=== PATIENT | female | born 1995 | race African-American/Black ===

== ENCOUNTER 2018-12-28 18:51 | Observation (INO) | payer SELFPAY ==
[~2018-12-28] VITALS: Ht 165.1 cm; Wt 97.7 kg
[2018-12-28 19:15] VITALS: BP 140/87
[2018-12-28 20:09] LABS: MICROSCOPIC INDICATED
[2018-12-28 20:18] LABS: AMPHETAMINE SCREEN, URINE Negative (Negative); BARBITURATE SCREEN, URINE Negative (Negative); BENZODIAZEPINE SCREEN, URINE Negative (Negative); CANNABINOID SCREEN, URINE Negative (Negative); COCAINE SCREEN, URINE Negative (Negative); METHADONE SCREEN, URINE Negative (Negative); OPIATE SCREEN, URINE Negative (Negative)
[2018-12-28 20:51] LABS: BASOPHILS # (AUTO) 0.04 x10^3/uL (0-0.1); BASOPHILS % (AUTO) 1 % (0-1); EOSINOPHILS # (AUTO) 0.07 x10^3/uL (0-0.4); EOSINOPHILS % (AUTO) 1 % (1-7); LYMPHOCYTES # (AUTO) 2.09 x10^3/uL (1-3.4); LYMPHOCYTES % (AUTO) 25 % (22-44); MD NO; MEAN CORPUSCULAR HEMOGLOBIN 31.2 pg (27.0-34.8); MEAN CORPUSCULAR HGB CONC 33.8 g/dL (32.4-35.8); MEAN CORPUSCULAR VOLUME 92.3 fL (80-100); MEAN PLATELET VOLUME 8.9 fL (7.4-10.4); MONOCYTES # (AUTO) 0.64 x10^3/uL (0.2-0.8); MONOCYTES % (AUTO) 8 % (2-9); NEUTROPHILS # (AUTO) 5.41 x10^3/uL (1.8-6.8); NEUTROPHILS % (AUTO) 66 % (42-75); PLATELET COUNT 199 x10^3/uL (130-400); RED BLOOD COUNT 3.48 x10^6/uL (3.82-5.3); RED CELL DISTRIBUTION WIDTH 13.6 % (9.6-15.2)
[2018-12-28] MEDS ORDERED: PREN1TAB60 PO ×2 (21:06→22:29)
[2018-12-28 21:09] LABS: ALANINE AMINOTRANSFERASE 22 U/L (12-78); ALBUMIN 2.8 g/dL (3.4-5.0); ANION GAP 9 mmol/L (5-15); BILIRUBIN, DIRECT 0.1 mg/dL (0.1-0.2); CALCIUM 8.5 mg/dL (8.5-10.1); CHLORIDE 108 mmol/L (98-107); CREATININE 0.43 mg/dL (0.55-1.02)
[2018-12-28 21:11] LABS: ALKALINE PHOSPHATASE 174 U/L (45-117); BILIRUBIN,TOTAL 0.3 mg/dL (0.2-1.0); TOTAL PROTEIN 6.3 g/dL (6.4-8.2)
[2018-12-28 22:20] LABS: CLUE CELLS NONE SEEN (NONE SEEN); WET PREP WBCS FEW (FEW)
== END 2018-12-28 22:40 | disposition home or self-care (01) ==
LOC: LDOP 18:51 → LDIP 20:45
PROVIDERS: ADMIT Obstetrics & Gynecology; ATTEND Obstetrics & Gynecology
DX: O26.893 Other specified pregnancy related conditions, third trimester (principal); R10.9 Unspecified abdominal pain; Z3A.34 34 weeks gestation of pregnancy
CPT/HCPCS: 36415; 76815; 80053; 80307; 81001; 82248; 82570; 84156; 84550; 85025; 86592; 86762; 86850; 86900; 87081; 87086; 87210; 87340; 87491; 87591; 87806; 87808; G0378; 59025; G0475

== ENCOUNTER 2019-01-20 11:25 | Outpatient (CLI) | payer SELFPAY ==
[~2019-01-20] VITALS: Ht 165.1 cm; Wt 97.7 kg
[~2019-01-20 11:25] MED LIST: PREN1TAB60 PO
[2019-01-20 11:56] LABS: CULTURE INDICATED? YES; MICROSCOPIC INDICATED
[2019-01-20 12:15] LABS: AMPHETAMINE SCREEN, URINE Negative (Negative); BARBITURATE SCREEN, URINE Negative (Negative); BENZODIAZEPINE SCREEN, URINE Negative (Negative); CANNABINOID SCREEN, URINE Positive (Negative); COCAINE SCREEN, URINE Negative (Negative); METHADONE SCREEN, URINE Negative (Negative); OPIATE SCREEN, URINE Negative (Negative)
[2019-01-20 12:59] LABS: BASOPHILS # (AUTO) 0.06 x10^3/uL (0-0.1); BASOPHILS % (AUTO) 1 % (0-1); EOSINOPHILS # (AUTO) 0.06 x10^3/uL (0-0.4); EOSINOPHILS % (AUTO) 1 % (1-7); LYMPHOCYTES # (AUTO) 1.85 x10^3/uL (1-3.4); LYMPHOCYTES % (AUTO) 27 % (22-44); MD NO; MEAN CORPUSCULAR HEMOGLOBIN 30.2 pg (27.0-34.8); MEAN CORPUSCULAR HGB CONC 33.3 g/dL (32.4-35.8); MEAN CORPUSCULAR VOLUME 90.8 fL (80-100); MEAN PLATELET VOLUME 8.8 fL (7.4-10.4); MONOCYTES # (AUTO) 0.62 x10^3/uL (0.2-0.8); MONOCYTES % (AUTO) 9 % (2-9); NEUTROPHILS # (AUTO) 4.19 x10^3/uL (1.8-6.8); NEUTROPHILS % (AUTO) 62 % (42-75); PLATELET COUNT 217 x10^3/uL (130-400); RED BLOOD COUNT 3.65 x10^6/uL (3.82-5.3); RED CELL DISTRIBUTION WIDTH 14.1 % (9.6-15.2)
[2019-01-20 13:10] LABS: ALANINE AMINOTRANSFERASE 12 U/L (12-78); ALBUMIN 2.4 g/dL (3.4-5.0); ANION GAP 7 mmol/L (5-15); BILIRUBIN, DIRECT 0.1 mg/dL (0.1-0.2); CALCIUM 8.1 mg/dL (8.5-10.1); CHLORIDE 109 mmol/L (98-107)
[2019-01-20 13:12] LABS: ALKALINE PHOSPHATASE 218 U/L (45-117); BILIRUBIN,TOTAL 0.5 mg/dL (0.2-1.0); TOTAL PROTEIN 5.9 g/dL (6.4-8.2)
== END 2019-01-20 13:45 | disposition home or self-care (01) ==
LOC: LDOP 11:25
PROVIDERS: ATTEND Obstetrics & Gynecology
DX: O26.893 Other specified pregnancy related conditions, third trimester (principal); R10.9 Unspecified abdominal pain; Z3A.38 38 weeks gestation of pregnancy
CPT/HCPCS: 36415; 59025; 80053; 80307; 81001; 82248; 82570; 84156; 84550; 85025; 87081; 87086; 99211; G0463

== ENCOUNTER 2019-02-07 00:04 | Emergency (ER) | payer OTHER ==
[~2019-02-07] VITALS: Ht 165.1 cm; Wt 100.0 kg
[~2019-02-07 00:04] MED LIST changes: +DOCU-131 PO; +IBUP-1223 PO; +OXYC-302 PO
--- NOTE | 2019-02-07 00:21 | NUR ---
Pt reports fever and increased abd pain "after my nap after I was discharged" yesterday afternoon. Pt had and was dc'd yesterday. Has not filled pain med prescription and has not taken any otc meds for fever/pain. "I just want to know if yall are going to keep me or not and get rid of this pain"
[2019-02-07] MEDS ORDERED: ACETAMINOPHEN 500 MG TABLET ONE (00:29)
[2019-02-07] MEDS ORDERED: CEFOXITIN 2,000 MG in SODIUM CHLORIDE 0.9% 50 ML IV ONE (00:42)
[2019-02-07] MEDS ORDERED: DOXYCYCLINE 100 MG in DEXTROSE 5% 250 ML IV SCH (01:00)
[2019-02-07] MEDS ORDERED: SODIUM CHLORIDE FLUSH 10ML SYR IVF ONE (01:00)
[2019-02-07] MEDS ORDERED: ONDANSETRON 2MG/ML, 2ML IVPush ONE (01:00)
[2019-02-07] MEDS ORDERED: ACETAMINOPHEN 500 MG TABLET PO ONE (01:00)
[2019-02-07] MEDS ORDERED: ONDANSETRON 2MG/ML, 2ML ONE (01:08)
[2019-02-07] MEDS ORDERED: MORPHINE SULFATE 4 MG/ML, 1ML ONE (01:09)
[2019-02-07] MEDS: MORPHINE SULFATE 4 MG/ML, 1ML IVPush PRN ×2 (01:25→02:03)
[2019-02-07 01:35] LABS: ALANINE AMINOTRANSFERASE 19 U/L (12-78); ALBUMIN 2.5 g/dL (3.4-5.0); ANION GAP 9 mmol/L (5-15); CALCIUM 8.4 mg/dL (8.5-10.1); CHLORIDE 105 mmol/L (98-107); CREATININE 0.55 mg/dL (0.55-1.02)
[2019-02-07 01:37] LABS: ALKALINE PHOSPHATASE 167 U/L (45-117); BILIRUBIN,TOTAL 0.4 mg/dL (0.2-1.0); MEAN CORPUSCULAR HEMOGLOBIN 29.2 pg (27.0-34.8); MEAN CORPUSCULAR HGB CONC 32.1 g/dL (32.4-35.8); MEAN CORPUSCULAR VOLUME 91.1 fL (80-100); MEAN PLATELET VOLUME 8.6 fL (7.4-10.4); PLATELET COUNT 302 x10^3/uL (130-400); RED BLOOD COUNT 2.91 x10^6/uL (3.82-5.3); RED CELL DISTRIBUTION WIDTH 14.6 % (9.6-15.2); TOTAL PROTEIN 6.4 g/dL (6.4-8.2)
--- NOTE | 2019-02-07 01:51 | NUR ---
Cultures drawn x2, abx infusing, pt reports 6/10 pain still.
[2019-02-07 01:53] LABS: BASOPHILS # (AUTO) 0.01 x10^3/uL (0-0.1); BASOPHILS % (AUTO) 0 % (0-1); EOSINOPHILS # (AUTO) 0.11 x10^3/uL (0-0.4); EOSINOPHILS % (AUTO) 1 % (1-7); LYMPHOCYTES # (AUTO) 1.16 x10^3/uL (1-3.4); LYMPHOCYTES % (AUTO) 9 % (22-44); MD SCAN; MONOCYTES # (AUTO) 0.46 x10^3/uL (0.2-0.8); MONOCYTES % (AUTO) 4 % (2-9); NEUTROPHILS # (AUTO) 10.57 x10^3/uL (1.8-6.8); NEUTROPHILS % (AUTO) 86 % (42-75)
--- NOTE | 2019-02-07 02:03 | NUR ---
Pt medicated for 6/10 pain per emar. Refusing straigt cath, states "I know I have a uti, they told me that when I was just here" States she has not gotten her prescriptions filled which included abx for uti, MD notified, ok for clean catch per MD.
[2019-02-07] MEDS ORDERED: OMNIPAQUE 350 MG/ML, 100ML BOTTLE ONE (02:13)
--- NOTE | 2019-02-07 02:24 | NUR ---
Per MD pena for clean catch ua, pt taken to restroom via wheelchair, pt one person assist in restroom.
[2019-02-07 02:38] LABS: CULTURE INDICATED? YES; MICROSCOPIC AUTO
[2019-02-07] MEDS ORDERED: SODIUM CHLORIDE 0.9% 1,000ML IVBOLUS ONE (03:00)
--- NOTE | 2019-02-07 03:37 | NUR ---
PT RESTING ON [facility] IV ABX AND FLUIDS INFUSING, MONITORS IN PLACE, CALL LIGHT WITHIN REACH
[2019-02-07] MEDS ORDERED: POTASSIUM CHLORIDE 20 MEQ TAB.ER.PRT ONE (03:50)
[2019-02-07 03:56] VITALS: BP 147/85
--- NOTE | 2019-02-07 03:57 | NUR ---
PT MEDICATED PER MAR
[2019-02-07] MEDS ORDERED: POTASSIUM CHLORIDE 20 MEQ TAB.ER.PRT PO ONE (04:00)
[2019-02-07] MEDS ORDERED: HYDROcodone/APAP 10/325 MG TABLET ONE (04:02)
--- NOTE | 2019-02-07 04:05 | NUR ---
pt medicated for pain, pt verbalized understanding and agreement not to drive self home, pt stated she is taking uber home
[2019-02-07] MEDS ORDERED: HYDROcodone/APAP 10/325 MG TABLET PO ONE (04:30)
== END 2019-02-07 04:21 | disposition home or self-care (01) ==
LOC: ED 03:00
DX: G89.18 Other acute postprocedural pain (principal); N39.0 Urinary tract infection, site not specified; R50.9 Fever, unspecified
CPT/HCPCS: 36415; 71045; 74177; 80053; 81001; 83605; 83690; 83735; 85025; 87040; 87086; 93005; 96365; 96367; 96375; 96376; 99284; J0694; J2270; J2405; J7030; J7060; Q9967; 96368